=== PATIENT | female | born 1955 | race Hispanic/Latino ===

== ENCOUNTER 2017-12-03 23:14 | Inpatient (IN) | payer SELFPAY ==
[2017-12-04 00:14] LABS: ALT (SGPT) 19 U/L (8-55); AST (SGOT) 22 U/L (5-34); Albumin 3.7 g/dL (3.4-4.8); Alkaline Phosphatase 141 U/L (40-150); Anion Gap 11 mmol/L (10-20); BUN (Urea Nitrogen) 12 mg/dL (9.8-20.1); Calc. Creatinine Clearance 0 mL/min (70-130); Calcium 8.5 mg/dL (7.8-10.44); Carbon Dioxide 24 mmol/L (23-31); Cardiac Risk 4.3 (Less than 4.5); Chloride 107 mmol/L (98-107); Cholesterol 159 mg/dl (< 200 Desired); Estimated GFR-MDRD 79; Globulin 3.1 g/dL (2.4-3.5); Glucose 172 mg/dL (80-115); HDL Cholesterol 37 mg/dL (>60 Neg Risk); LDL Cholesterol, Calculated 100 mg/dL; Potassium 4.4 mmol/L (3.5-5.1); Protein, Total 6.8 g/dL (6.0-8.3); Sodium 138 mmol/L (136-145); Triglycerides 110 mg/dL (Less than 150)
[2017-12-04 00:26] LABS: Lipase 1539 U/L (8-78)
[2017-12-04 02:16] VITALS: BMI 28.3
[2017-12-04] MEDS ORDERED: Ondansetron ODT 4 MG TAB SL PRN (04:08)
[2017-12-04] MEDS ORDERED: Ondansetron HCl/PF 4 MG/2 ML Vial IVP PRN ×2 (04:08→07:40)
[2017-12-04] MEDS ORDERED: Acetaminophen 325 MG TAB PO PRN (04:08)
[2017-12-04] MEDS ORDERED: Lactated Ringer's 1,000 ML IV SCH ×2 (04:15)
[2017-12-04] MEDS ORDERED: Chloraseptic Spray 180 ml Bottle PO PRN (07:40)
[2017-12-04] MEDS ORDERED: Zolpidem Tartrate 5 MG TAB PO PRN (07:40)
[2017-12-04] MEDS ORDERED: Artificial Tears 18 DROP/0.9 ML EA EYE PRN (07:40)
[2017-12-04] MEDS ORDERED: Mag-Al 1200 mg/1200 mg/30 ML UDCUP PO PRN (07:40)
[2017-12-04] MEDS ORDERED: Loperamide HCl 2 MG CAP PO PRN (07:40)
[2017-12-04] MEDS ORDERED: hydrALAZINE 20 MG/ML VIAL SLOW IVP PRN (07:40)
[2017-12-04] MEDS ORDERED: Milk Of Magnesia 30 ML UDCUP PO PRN (07:40)
[2017-12-04] MEDS ORDERED: Sodium Chloride 0.65% Nasal 44 ML BOT EA NARE PRN (07:40)
[2017-12-04] MEDS ORDERED: Ondansetron ODT 4 MG TAB PO PRN (07:40)
[2017-12-04] MEDS ORDERED: Eucerin (Mineral Oil/Petrolatum,White) 30 gm Jar TOP PRN (07:40)
[2017-12-04] MEDS ORDERED: Albuterol Sulfate 2.5 mg/3 ml Neb NEB PRN (07:45)
--- NOTE | 2017-12-04 09:40 | ULT ---
GALLBLADDER ULTRASOUND: HISTORY: Pancreatitis. COMPARISON: None. TECHNIQUE: Utilizing a multihertz transducer, sonographic imaging of the right upper quadrant was performed in t he longitudinal and transverse plane. FINDINGS: Increased echogenicity of the liver is felt to be due to hepatic steatosis or hepatocellular disease. Subsequent evaluation for hepatic masses and intrahepatic biliary dilatation is limited. The right hepatic lobe measures 13 cm. Main portal vein is patent. Appropriate directional flow. Common bile duct diameter is 0.3 cm. There is diffuse wall thickening and edema involving gallbladder. Gallbladder wall thickness is 1.1 cm. There is no evidence of sludge or stone within the gallbladder. There is a small amount of max cholecystic fluid. Knitting Machine Operator reports a negative Tamayo's sign. The right kidney demonstrates a normal cortical echotexture. No hydronephrosis. The right kidney me asures 7.3 cm x 3.9 x 4.7 cm. IMPRESSION: Gallbladder wall thickening and edema. Correlate clinically for acalculous cholecystitis and HIDA sc an. POS: [facility]
[2017-12-04] MEDS ORDERED: Ketorolac Tromethamine 30 MG/ML VIAL IVP PRN (10:02)
[2017-12-04] MEDS: D5 0.9% NS w/ 20 mEq KCl 1,000 ML IV SCH ×3 (11:02→23:50)
[2017-12-04] MEDS: cefTRIAXone\\ROCEPHIN 1 GM in Sodium Chloride 0.9% 100 ML IVPB SCH (11:07)
--- NOTE | 2017-12-04 11:08 | HP ---
PRIMARY CARE PHYSICIAN: [facility] call admission. REASON FOR ADMISSION: Acute pancreatitis. HISTORY OF PRESENT ILLNESS: A 62-year-old female with past medical history of hypertension, gastroesophageal reflux disease, and asthma who went to [facility] with a complaint of acute onset of epigastric abdominal pain. The patient was having 6/10 in intensity pain, constant, stabbing, associated with nausea. She denies any vomiting. There was no specific aggravating or relieving factor. The patient was not able to eat because of pain. Her pain was so intense and that is why she required to go to [facility] where she was found with elevated lipase and patient clinically diagnosed with acute pancreatitis and patient was sent to our emergency room. She was given Toradol 30 mg, morphine 4 mg, Zofran ODT and patient was given IV fluid. Patient never had this type of pain in the past. She denies any constipation, diarrhea, melena or hematochezia. She denies any hematemesis. She denies any fever or chills. She does report lower abdominal and suprapubic discomfort. She denies any dysuria or increased frequency. She denies any hematuria. REVIEW OF SYSTEMS: The following complete review of systems was negative, unless otherwise mentioned in the HPI or below: Constitutional: Weight loss or gain, ability to conduct usual activities. Skin: Rash, itching. Eyes: Double vision, pain. ENT/Mouth: Nose bleeding, neck stiffness, pain, tenderness. Cardiovascular: Palpitations, dyspnea on exertion, orthopnea. Respiratory: Shortness of breath, wheezing, cough, hemoptysis, fever or night sweats. Gastrointestinal: Poor appetite, abdominal pain, heartburn, nausea, vomiting, constipation, or diarrhea. Genitourinary: Urgency, frequency, dysuria, nocturia. Musculoskeletal: Pain, swelling. Neurologic/Psychiatric: Anxiety, depression. Allergy/Immunologic: Skin rash, bleeding tendency. Please see my HPI for pertinent positive and negative. All other review of systems reviewed and negative except as mentioned in the HPI. PAST MEDICAL HISTORY: Asthma, gastroesophageal reflux disease and hypertension. PAST SURGICAL HISTORY: Reviewed and negative. PAST PSYCHIATRIC HISTORY: Reviewed and negative. SOCIAL HISTORY: Patient lives at home. She speaks Slovenian. No history of tobacco, alcohol or illicit drug abuse. FAMILY HISTORY: No strong family history of premature coronary artery disease, stroke or cancer. ALLERGIES: No known drug allergy. CURRENT HOME MEDICATIONS: ProAir HFA 1 puff q.6 hourly p.r.n., aspirin 81 mg p.o. daily, Symbicort 1 puff inhalation b.i.d., enalapril 10 mg p.o. daily. EMERGENCY ROOM COURSE: Patient is given morphine 4 mg, Toradol 30 mg, Zofran ODT and IV fluid. PHYSICAL EXAMINATION: VITAL SIGNS: Currently, blood pressure 127/63, pulse 71, respiratory rate 19, temperature 98.7, saturation 94% on room air, and weight 60.3 kilograms. GENERAL: The patient is currently alert, awake, no obvious acute distress. HEAD: Normocephalic, atraumatic. EYES: Pupils round, reactive to light. Extraocular muscle intact. ENT: Oropharynx within normal limits. Moist mucous membrane, no oral lesion, no pharyngeal erythema, no exudate. NECK: Supple, no JVD, no thyromegaly, no carotid bruit, no jugular venous distention. LUNGS: Clear to auscultation without any rhonchi or rales. CARDIAC: S1 and S2 regular. No murmur, no gallop, no rub. ABDOMEN: Soft, bowel sounds present, nontender, nondistended. No organomegaly , no mass, no suprapubic tenderness. BACK: Examination unremarkable, no CVA tenderness. EXTREMITIES: Upper extremity passive movement of all joints are normal. Lower extremities: No edema. Good peripheral pulsation. SKIN: No skin rash. HEMATOLOGICAL SYSTEM: No lymphadenopathy. ABDOMEN: The patient does have significant tenderness in right upper quadrant as well as epigastric region. No peritoneal sign, no guarding, no rigidity, no rebound. Mild suprapubic discomfort noted. LABORATORY DATA AND IMAGING DATA: CBC; hematocrit 43.3, platelets 330. Urinalysis, bacteria 1+, nitrate negative, leukocyte esterase small. Sodium 138 , potassium 4.4, chloride 107, carbon dioxide 24, BUN 12, creatinine 0.75, glucose 172, calcium 8.5. LFT: AST 22, ALT 19, alkaline phosphatase 141, albumin 3.7, triglyceride 110, cholesterol 159, LDL 100, HDL 37, lipase 1539. Abdominal ultrasound showing gallbladder wall thickening and edema. ASSESSMENT AND PLAN/IMPRESSION: 1. Acute pancreatitis. 2. Acute acalculous cholecystitis. 3. Urinary tract infection. 4. Hypertension. 5. Gastroesophageal reflux disease. 6. Asthma. 7. Deep venous thrombosis prophylaxis with Lovenox 40 mg subcutaneously daily. 8. Gastrointestinal prophylaxis with Pepcid 20 mg IV b.i.d. 10. Deep venous thrombosis prophylaxis, Lovenox 40 mg subcu daily. 11. Gastrointestinal prophylaxis, Pepcid 20 mg IV b.i.d. 12. Code status: The patient is FULL CODE. The patient's granddaughter is surrogate decision maker. PLAN: Full admission to medical floor. Pain control with morphine 4 mg every 4 hourly, Toradol 15 mg IV q.6 hourly. Resume all her home medications. Continue IV fluid with dextrose with NS at 125 mL per hour. Keep n.p.o. Get HIDA scan. GI consulted. Monitor labs, monitor clinical response. Once pain is controlled, then we will start Disposition plan based on clinical course. We are expecting patient's stay in hospital more than 2 midnights. Plan of care discussed with the patient and family member at bedside. ABDI
[2017-12-04 11:18] LABS: Bilirubin Small (Negative); Blood, Urine Negative (Negative); Clarity CLEAR (Clear); Glucose, Urine (Dipstick) 100 mg/dL (Negative); Leukocyte Negative (Negative); Nitrite Negative (Negative); Protein, Urine (Dipstick) 30 mg/dL (Neg-Trace); Urobilinogen 0.2 mg/dL (0.2-1.0); pH, Urine 5.5 (5.0-9.0)
[2017-12-04 11:20] LABS: Bacteria/HPF Rare-Few HPF (None Seen); Pathc Cast-AUWi Flag 1.44 (0-2.49); RBC/HPF 0-3 HPF (0-3); Squamous Epithelial 0-3 HPF (0-3); WBC/HPF 0-3 HPF (0-3)
[2017-12-04 11:21] LABS: Specific Gravity, Urine Greater than 1.060 (1.002-1.036)
[2017-12-04 11:22] LABS: Hyaline Casts/LPF 0-3 HYALINE CAST LPF (0-3 Hyaline)
--- NOTE | 2017-12-04 16:05 | CON ---
DATE OF CONSULTATION: 12/04/2017 GASTROENTEROLOGY CONSULTATION CHIEF COMPLAINT: Abdominal pain. HISTORY OF PRESENT ILLNESS: Ms. Kuo is a 62-year-old woman who had abrupt onset of epigastric severe aching abdominal pain yesterday afternoon. She went to the emergency room and was given a flu id bolus. She had lab work drawn that showed elevated lipase consistent with acute pancreatitis. Lori jimenez had a CT scan with contrast of the abdomen only which showed inflammatory changes around the pancre as consistent with acute pancreatitis. She was transferred to [place] for further care. She has had n ausea and vomiting associated with the pain. She last threw up this morning. She has had no fever, no chest pain or shortness of breath; however, her abdominal pain increases when she takes a deep ferdinand ath. She has had no diarrhea, constipation or blood in the stool. Weight has been stable over the l ast several months. She did have one transient episode of epigastric pain several days ago that was unrelated to eating. This pain lasted for few minutes and resolved. PAST MEDICAL HISTORY: Hypertension and asthma. PAST SURGICAL HISTORY: Negative. FAMILY HISTORY: Positive for prostate cancer in her father. No GI malignancy. SOCIAL HISTORY: No alcohol, tobacco or drugs. ALLERGIES: No known drug allergies. MEDICATIONS PRIOR TO ADMISSION: Enalapril, aspirin 81 mg daily, and inhalers for her asthma. REVIEW OF SYSTEMS: Negative x10 systems reviewed except as stated in history of present illness. Ron flores's family acts as her highway safety engineer. PHYSICAL EXAMINATION: VITAL SIGNS: Temperature 98.4, pulse 73, oxygen saturation 92%, blood pressure 130/71, she is on matt m air. GENERAL: She is in no acute distress. She is oriented x3. HEENT: Eyes have no scleral icterus. Oropharynx is clear without lesion. She has dry mucous membra winter. NECK: No cervical or supraclavicular lymphadenopathy. LUNGS: Clear to auscultation bilaterally. She has shallow breaths however. HEART: Has regular rate and rhythm without murmur. ABDOMEN: Tender diffusely, more so in the epigastric region. No guarding. Her bowel sounds are pre sent. EXTREMITIES: No lower extremity edema. NEUROLOGIC: Cranial nerves are grossly intact. LABORATORY DATA: From yesterday at 19:00, creatinine 0.8, bilirubin 1.1, alkaline phosphatase 147, A ST 32, ALT 19, albumin 4.2, lipase 11,000 with upper limit of normal of 78, white blood cell count 18 , hemoglobin 14, platelets 11.7. She had lab work at midnight last night, which showed creatinine 0. 75, bilirubin 1.0, AST 22, ALT 19, alkaline phosphatase 141, lipase 1539. IMPRESSION: 1. Acute pancreatitis. The source of her pancreatitis is unclear at this point. She had normal riya er tests and no obvious stones in the gallbladder by ultrasound. The gallbladder does show wall thic kness and edema with small amount of pericholecystic fluid. The common bile duct measured 0.3 cm. T he thickening of the gallbladder could indicate active inflammation in the gallbladder; however, this might just be secondary to the pancreatitis as well. I would favor gallbladder is the most likely e tiology in this patient for pancreatitis; however, again LFTs are normal. There is inadequate eviden ce to definitively indicate this. There is no alcohol use. She did have triglyceride level of 110 l ast night. She received IV fluid bolus in the emergency room in [place]. I am unclear as to how m uch fluid she has received since then or how much fluid total she received there. Currently, she is on D5 normal saline with 20 mEq of potassium at 125 mL per hour. 2. Poor respiratory effort. This is secondary to the abdominal pain. Her oxygen saturations 92% on room air. She is encouraged to take very deep breaths couple of times per hour to help prevent atel ectasis. We will also provide incentive spirometer. RECOMMENDATIONS: 1. IV fluids and supportive care. 2. Follow trend of her liver tests. Recheck her hemoglobin as well to see how she has responded to hydration. 3. Incentive spirometer. 4. We will need to keep the gallbladder in mind for further intervention depending on clinical cours e.
[2017-12-04] MEDS: Famotidine/PF 20 mg/2ml Vial SLOW IVP SCH ×2 (16:20→20:52)
[2017-12-04] MEDS: Enoxaparin Sodium 40 MG/0.4 ML SYRINGE SC SCH (16:20)
[2017-12-04] MEDS: Acetaminophen 325 MG TAB PO PRN (17:19)
[2017-12-04] MEDS: Aspirin 81 mg Enteric Coated Tablet PO SCH (17:30)
--- NOTE | 2017-12-04 17:41 | NM ---
HEPATOBILIARY SCAN: 12/04/17 COMPARISON: Gallbladder ultrasound 12/04/17. HISTORY: Right upper quadrant abdominal pain. Pancreatitis. Acalculous cholecystitis. TECHNIQUE: A hepatobiliary scan was performed after administration of 5 millicuries of technetium 99m Mebrofenin . FINDINGS: Prompt uptake of the radiopharmaceutical by the liver is seen. Gallbladder activity is seen within fi ve minutes. Bowel activity is seen after approximately one hour. After administration of CCK, a gallb ladder ejection fraction was estimated at 90%. IMPRESSION: Unremarkable hepatobiliary scan. POS: [facility]
[2017-12-04] MEDS: Mometasone/Formoterol 120 PUFF INHALER INH SCH (18:35)
[2017-12-04] MEDS: HYDROcodone/Acetaminophen 5/325 mg Tablet PO PRN (21:09)
[2017-12-05 05:06] LABS: #Lymphocytes 1.2 thou/uL (1.20-3.40); #Monocytes 0.8 thou/uL (0.11-0.59); #Neutrophils 14.1 thou/uL (1.40-6.50); %Basophils 0.2 % (0.0-1.0); %Eosinophils 0.2 % (0.0-10.0); %Lymphocytes 7.3 % (21.0-51.0); %Monocytes 5.1 % (0.0-10.0); %Neutrophils 87.2 % (42.0-75.0); Hemoglobin 13.2 g/dL (12.0-16.0); Mean Corpuscular Hemoglobin 27.9 pg (27.0-31.0); Mean Platelet Volume 7.8 fL (7.4-10.4); Platelet Count 250 thou/uL (130-400); RBC Distribution Width 11.8 % (11.5-14.5); Red Blood Cell (RBC) Count 4.73 mill/uL (4.20-5.40); White Blood Cell (WBC) Count 16.2 thou/uL (4.8-10.8)
[2017-12-05 05:34] LABS: ALT (SGPT) 15 U/L (8-55); AST (SGOT) 17 U/L (5-34); Albumin 2.8 g/dL (3.4-4.8); Alkaline Phosphatase 100 U/L (40-150); Anion Gap 7 mmol/L (10-20); BUN (Urea Nitrogen) 14 mg/dL (9.8-20.1); Bilirubin, Total 1.5 mg/dL (0.2-1.2); CRP (Inflammatory) 20.76 mg/dL (= or < 0.5); Calc. Creatinine Clearance 79 mL/min (70-130); Calcium 7.7 mg/dL (7.8-10.44); Carbon Dioxide 25 mmol/L (23-31); Chloride 111 mmol/L (98-107); Estimated GFR-MDRD 85; Globulin 2.7 g/dL (2.4-3.5); Glucose 149 mg/dL (80-115); Lipase 316 U/L (8-78); Magnesium 1.8 mg/dL (1.6-2.6); Potassium 4.2 mmol/L (3.5-5.1); Protein, Total 5.5 g/dL (6.0-8.3); Sodium 139 mmol/L (136-145)
[2017-12-05 05:36] LABS: Phosphorus 1.9 mg/dL (2.3-4.7)
[2017-12-05] MEDS ORDERED: Potassium Phosphate 21 MMOL in Sodium Chloride 0.9% 250 ML 250 ML IVPB SCH (06:00)
[2017-12-05] MEDS: Mometasone/Formoterol 120 PUFF INHALER INH SCH ×2 (07:01→19:09)
[2017-12-05] MEDS: Sodium Chloride 0.9% 1,000 ML IV SCH ×3 (08:24→19:56)
--- NOTE | 2017-12-05 08:57 | PDOC.PN ---
- Subjective Encounter Start Date: 12/05/17 Encounter Start Time: 07:40 -: old records requested/rev Patient seen and examined. No new complaints. No overnight events she reports that her abdominal pain is less than yesterday, no fever - Objective Resuscitation Status: Resuscitation Status FULL:Full Resuscitation MAR Reviewed: Yes Vital Signs & Weight: Vital Signs (12 hours) Temp Pulse Resp BP Pulse Ox 12/05/17 08:07 98.5 F 102 H 20 146/78 H 94 L 12/05/17 07:01 87 16 97 12/04/17 23:46 98.5 F 98 16 135/83 94 L Weight Weight 131 lb 2 oz I&O: 12/04/17 12/05/17 12/06/17 06:59 06:59 06:59 Intake Total 1550 Balance 1550 Result Diagrams: 12/05/17 04:15 12/05/17 04:15 Radiology Reviewed by me: Yes (HIDA scan normal) Phys Exam - Physical Examination Constitutional: NAD HEENT: PERRLA, moist MMs, sclera anicteric Neck: no nodes, no JVD, supple, full ROM Respiratory: no wheezing, no rales, no rhonchi Cardiovascular: RRR, no significant murmur, no rub Gastrointestinal: soft, no distention, positive bowel sounds mild epigastric tenderness Musculoskeletal: no edema, pulses present Neurological: non-focal, normal sensation, moves all 4 limbs Psychiatric: normal affect, A&O x 3 Skin: no rash, normal turgor Dx/Plan (1) Acute pancreatitis Code(s): K85.90 - ACUTE PANCREATITIS WITHOUT NECROSIS OR INFECTION, UNSP Status: Acute Qualifiers: Pancreatitis type: idiopathic (2) Hypophosphatemia Code(s): E83.39 - OTHER DISORDERS OF PHOSPHORUS METABOLISM Status: Acute (3) UTI (urinary tract infection) Status: Acute (4) Asthma Code(s): J45.909 - UNSPECIFIED ASTHMA, UNCOMPLICATED Status: Chronic (5) GERD (gastroesophageal reflux disease) Code(s): K21.9 - GASTRO-ESOPHAGEAL REFLUX DISEASE WITHOUT ESOPHAGITIS Status: Chronic (6) Hypertension Code(s): I10 - ESSENTIAL (PRIMARY) HYPERTENSION Status: Chronic (7) Acute acalculous cholecystitis Code(s): K81.0 - ACUTE CHOLECYSTITIS Status: Ruled-out - Plan cont current plan of care, plan discussed w/ family, continue antibiotics, incentive spirometry, out of bed/ambulate, DVT proph w/lovenox * continue pain control * today will start clear liquid and full liquid * if tolerate well tomorrow will give low fat diet * change IVF to NS at 125 ml per hour * ambulate today * discussed with family * rocephin for UTI * medication reviewed as below * symptomatic treatment. Review of Systems - Review of Systems Constitutional: negative: fever, chills, sweats, weakness, malaise, other Eyes: negative: Pain, Vision Change, Conjunctivae Inflammation, Eyelid Inflammation, Redness, Other ENT: negative: Ear Pain, Ear Discharge, Nose Pain, Nose Discharge, Nose Congestion, Mouth Pain, Mouth Swelling, Throat Pain, Throat Swelling, Other Respiratory: negative: Cough, Dry, Shortness of Breath, Hemoptysis, SOB with Excertion, Pleuritic Pain, Sputum, Wheezing Gastrointestinal: Abdominal Pain. negative: Nausea, Vomiting, Diarrhea, Constipation, Melena, Hematochezia, Other Genitourinary: negative: Dysuria, Frequency, Incontinence, Hematuria, Retention , Other Musculoskeletal: negative: Neck Pain, Shoulder Pain, Arm Pain, Back Pain, Hand Pain, Leg Pain, Foot Pain, Other Skin: negative: Rash, Lesions, Negro, Bruising, Other - Medications/Allergies Allergies/Adverse Reactions: Allergies Allergy/AdvReac Type Severity Reaction Status Date / Time No Known Allergies Allergy Unverified 12/04/17 02:12 Medications: Current Medications Acetaminophen (Tylenol) 650 mg PO Q4H PRN PRN Reason: Headache/Fever or Pain Last Admin: 12/04/17 17:19 Dose: 650 mg Hydrocodone Bitart/Acetaminophen (Riesel 5/325) 1 tab PO Q4H PRN PRN Reason: Moderate Pain (4-6) Last Admin: 12/04/17 21:09 Dose: 1 tab Al Hydroxide/Mg Hydroxide (Maalox) 30 ml PO Q6H PRN PRN Reason: Heartburn or Indigestion Albuterol Sulfate (Ventolin) 2.5 mg NEB [id number] PRN PRN Reason: Wheezing Artificial Tears (Tears Naturale) 0 drop EA EYE PRN PRN PRN Reason: Dry Eyes Aspirin (Ecotrin) 81 mg PO DAILY RADHA Last Admin: 12/04/17 17:30 Dose: Not Given Enalapril Maleate (Vasotec) 10 mg PO DAILY [facility] Last Admin: 12/04/17 17:31 Dose: Not Given Enoxaparin Sodium (Lovenox) 40 mg SC 0900 [facility] Last Admin: 12/04/17 16:20 Dose: Not Given Famotidine (Pepcid) 20 mg SLOW IVP Q12HR [facility] Last Admin: 12/04/17 20:52 Dose: 20 mg Hydralazine HCl (Apresoline) 10 mg SLOW IVP Q4H PRN PRN Reason: Systolic BP > 180 Ceftriaxone Sodium 1 gm/ (Sodium Chloride) 100 mls @ 200 mls/hr IVPB Q24HR [facility] Last Admin: 12/04/17 11:07 Dose: 100 mls Potassium Phosphate 21 mmol/ (Sodium Chloride) 507 mls @ 126.75 mls/hr IVPB NOW [facility] Stop: 12/05/17 10:29 Last Admin: 12/05/17 06:26 Dose: 507 mls Sodium Chloride (Normal Saline 0.9%) 1,000 mls @ 125 mls/hr IV .Q8H [facility] Last Admin: 12/05/17 08:24 Dose: 1,000 mls Ketorolac Tromethamine (Toradol) 15 mg IVP Q6H PRN PRN Reason: Pain Stop: 12/09/17 10:03 Loperamide HCl (Imodium) 2 mg PO PRN PRN PRN Reason: Diarrhea/Loose Stools Magnesium Hydroxide (Milk Of Magnesium) 30 ml PO DAILYPRN PRN PRN Reason: Constipation Mineral Oil/White Petrolatum (Eucerin Cream) 0 gm TOP BIDPRN PRN PRN Reason: Dry Skin Miscellaneous Medication (Phos-Nak) 1 pkt PO BID [facility] Mometasone Furoate/Formoterol Fumar (Dulera 100 Mcg/5 Mcg Inhaler) 2 puff INH BID-RT [facility] Last Admin: 12/05/17 07:01 Dose: 2 puff Morphine Sulfate (Morphine) 2 mg SLOW IVP Q2H PRN PRN Reason: Moderate to Severe Pain (4-10) Last Admin: 12/05/17 08:24 Dose: 2 mg Morphine Sulfate (Morphine Sulfate) 4 mg SLOW IVP Q4H PRN PRN Reason: Pain Ondansetron HCl (Zofran Odt) 4 mg PO Q6H PRN PRN Reason: Nausea/Vomiting Ondansetron HCl (Zofran) 4 mg IVP Q6H PRN PRN Reason: Nausea/Vomiting Phenol (Chloraseptic [place] 180 Ml Bot) 0 ml PO PRN PRN PRN Reason: Sore Throat Senna (Senokot) 2 tab PO HSPRN PRN PRN Reason: Constipation Sodium Chloride ([place]ata[place] Nasal [place] 0.65%) 0 ml EA NARE QIDPRN PRN PRN Reason: Nasal Congestion Zolpidem Tartrate (Ambien) 5 mg PO HSPRN PRN PRN Reason: Insomnia
[2017-12-05] MEDS: HYDROcodone/Acetaminophen 5/325 mg Tablet PO PRN ×2 (10:11→17:28)
[2017-12-05] MEDS: Aspirin 81 mg Enteric Coated Tablet PO SCH (10:11)
[2017-12-05] MEDS: Famotidine/PF 20 mg/2ml Vial SLOW IVP SCH (10:13)
[2017-12-05] MEDS: Enoxaparin Sodium 40 MG/0.4 ML SYRINGE SC SCH (10:16)
[2017-12-05] MEDS: cefTRIAXone\\ROCEPHIN 1 GM in Sodium Chloride 0.9% 100 ML IVPB SCH (12:26)
--- NOTE | 2017-12-05 13:55 | PRG ---
DATE OF SERVICE: 12/05/2017 SUBJECTIVE: Ms. Kuo has had improvement in her abdominal pain today. She has had no bowel mov ement today. PHYSICAL EXAMINATION: VITAL SIGNS: Temperature 98.7, pulse 104, blood pressure 113/70, oxygen saturation 92%. GENERAL: She is in no acute distress, awake and alert. LUNGS: Clear to auscultation bilaterally. HEART: Regular rate and rhythm. ABDOMEN: Soft, tender in the upper abdomen, but there is no guarding. Bowel sounds are present. EXTREMITIES: No lower extremity edema and tenderness is mild and her abdomen. LABORATORY DATA: White blood cell count 16.2, hemoglobin is 13.2, platelets 250, creatinine 0.7, vinnie irubin is 1.5, AST 17, ALT 15, alkaline phosphatase 100, lipase is down to 316 from 1500 yesterday. IMPRESSION: 1. Acute pancreatitis. The cause of the pancreatitis is undetermined at this point. I would favor possibility of gallstones; however, no stones were seen by ultrasound and her liver tests were normal on presentation. Her bilirubin did increase very slightly today and will follow the trend of this. If her bilirubin continues to climb, then we can perform an MRCP tomorrow. If again, the liver test s remain normal and no sources identified, then follow up imaging on her pancreas in 4 weeks after re solution of the acute pancreatitis should be performed to rule out a pancreatic tumor as a source for idiopathic pancreatitis in a patient over age 61. RECOMMENDATIONS: 1. Continue supportive care with fluids and pain control. 2. Continue to encourage deep breaths and incentive spirometer. 3. If her liver tests increase tomorrow, then we will consider MRCP is the next step. 4. If her liver tests go back to normal, then followup imaging in 2-4 weeks after resolution of the acute pancreatitis should be performed to rule out a neoplastic process in the pancreas.
[2017-12-05] MEDS: Famotidine 20 MG TAB PO SCH (19:56)
[2017-12-06] MEDS: HYDROcodone/Acetaminophen 5/325 mg Tablet PO PRN ×2 (01:59→19:31)
[2017-12-06] MEDS: Acetaminophen 325 MG TAB PO PRN ×3 (01:59→19:31)
[2017-12-06] MEDS: Sodium Chloride 0.9% 1,000 ML IV SCH ×4 (04:12→21:20)
[2017-12-06 05:32] LABS: Anion Gap 9 mmol/L (10-20); BUN (Urea Nitrogen) 7 mg/dL (9.8-20.1); Calc. Creatinine Clearance 99 mL/min (70-130); Calcium 7.3 mg/dL (7.8-10.44); Carbon Dioxide 22 mmol/L (23-31); Chloride 107 mmol/L (98-107); Estimated GFR-MDRD Greater than 90; Glucose 81 mg/dL (80-115); Lipase 66 U/L (8-78); Potassium 3.5 mmol/L (3.5-5.1); Sodium 134 mmol/L (136-145)
[2017-12-06 06:37] LABS: #Basophils 0.1 thou/uL (0.0-0.2); #Eosinphils 0.1 thou/uL (0.0-0.7); #Lymphocytes 1.1 thou/uL (1.20-3.40); #Monocytes 0.7 thou/uL (0.11-0.59); #Neutrophils 12.1 thou/uL (1.40-6.50); %Basophils 0.4 % (0.0-1.0); %Eosinophils 0.7 % (0.0-10.0); %Monocytes 4.7 % (0.0-10.0); %Neutrophils 86.1 % (42.0-75.0); Hemoglobin 10.8 g/dL (12.0-16.0); Mean Corpuscular HGB CONC 32.7 g/dL (32.0-36.0); Mean Corpuscular Hemoglobin 28.9 pg (27.0-31.0); Mean Corpuscular Volume 88.5 fL (78.0-98.0); Mean Platelet Volume 7.5 fL (7.4-10.4); PLT Morphology Comment Appears Adequate; Platelet Count 200 thou/uL (130-400); RBC Distribution Width 11.6 % (11.5-14.5); RBC Morphology Normal; Red Blood Cell (RBC) Count 3.73 mill/uL (4.20-5.40)
[2017-12-06] MEDS: Mometasone/Formoterol 120 PUFF INHALER INH SCH ×2 (06:50→19:27)
[2017-12-06] MEDS: Famotidine 20 MG TAB PO SCH ×2 (09:06→19:31)
[2017-12-06] MEDS: Aspirin 81 mg Enteric Coated Tablet PO SCH (09:07)
[2017-12-06] MEDS: Enoxaparin Sodium 40 MG/0.4 ML SYRINGE SC SCH (09:07)
--- NOTE | 2017-12-06 09:56 | PDOC.PN ---
- Subjective Encounter Start Date: 12/06/17 Encounter Start Time: 07:40 Patient seen and examined. No new complaints. No overnight events - Objective Resuscitation Status: Resuscitation Status FULL:Full Resuscitation MAR Reviewed: Yes Vital Signs & Weight: Vital Signs (12 hours) Temp Pulse Resp BP BP Pulse Ox 12/06/17 09:06 105/56 L 12/06/17 08:00 98.4 F 75 16 91 L 12/06/17 07:19 98.4 F 75 16 105/56 L 91 L Weight Weight 131 lb 2 oz I&O: 12/05/17 12/06/17 12/07/17 06:59 06:59 06:59 Intake Total 1550 1705 Balance 1550 1705 Result Diagrams: 12/06/17 04:01 12/06/17 04:01 Phys Exam - Physical Examination Constitutional: NAD HEENT: PERRLA, moist MMs, sclera anicteric Neck: no JVD, supple Respiratory: no wheezing, no rales, no rhonchi Cardiovascular: RRR, no significant murmur, no rub Gastrointestinal: soft, no distention, positive bowel sounds mild discomfort Musculoskeletal: no edema, pulses present Neurological: non-focal, normal sensation, moves all 4 limbs Lymphatic: no nodes Psychiatric: normal affect, A&O x 3 Skin: no rash, normal turgor Dx/Plan (1) Acute pancreatitis Code(s): K85.90 - ACUTE PANCREATITIS WITHOUT NECROSIS OR INFECTION, UNSP Status: Acute Qualifiers: Pancreatitis type: idiopathic (2) Hypophosphatemia Code(s): E83.39 - OTHER DISORDERS OF PHOSPHORUS METABOLISM Status: Acute (3) UTI (urinary tract infection) Status: Acute (4) Asthma Code(s): J45.909 - UNSPECIFIED ASTHMA, UNCOMPLICATED Status: Chronic (5) GERD (gastroesophageal reflux disease) Code(s): K21.9 - GASTRO-ESOPHAGEAL REFLUX DISEASE WITHOUT ESOPHAGITIS Status: Chronic (6) Hypertension Code(s): I10 - ESSENTIAL (PRIMARY) HYPERTENSION Status: Chronic (7) Acute acalculous cholecystitis Code(s): K81.0 - ACUTE CHOLECYSTITIS Status: Ruled-out - Plan cont current plan of care, plan discussed w/ family * advance diet * if do ok, possible discharge * medication reviewed as below * symptomatic treatment * discussed with family about plan and diet. Review of Systems - Review of Systems Eyes: negative: Pain, Vision Change, Conjunctivae Inflammation, Eyelid Inflammation, Redness, Other ENT: negative: Ear Pain, Ear Discharge, Nose Pain, Nose Discharge, Nose Congestion, Mouth Pain, Mouth Swelling, Throat Pain, Throat Swelling, Other Respiratory: negative: Cough, Dry, Shortness of Breath, Hemoptysis, SOB with Excertion, Pleuritic Pain, Sputum, Wheezing Cardiovascular: negative: chest pain, palpitations, orthopnea, paroxysmal nocturnal dyspnea, edema, light headedness, other Gastrointestinal: negative: Nausea, Vomiting, Abdominal Pain, Diarrhea, Constipation, Melena, Hematochezia, Other Genitourinary: negative: Dysuria, Frequency, Incontinence, Hematuria, Retention , Other Musculoskeletal: negative: Neck Pain, Shoulder Pain, Arm Pain, Back Pain, Hand Pain, Leg Pain, Foot Pain, Other Skin: negative: Rash, Lesions, Negro, Bruising, Other - Medications/Allergies Allergies/Adverse Reactions: Allergies Allergy/AdvReac Type Severity Reaction Status Date / Time No Known Allergies Allergy Unverified 12/04/17 02:12 Medications: Current Medications Acetaminophen (Tylenol) 650 mg PO Q4H PRN PRN Reason: Headache/Fever or Pain Last Admin: 12/06/17 01:59 Dose: 650 mg Hydrocodone Bitart/Acetaminophen ([place] 5/325) 1 tab PO Q4H PRN PRN Reason: Moderate Pain (4-6) Last Admin: 12/06/17 01:59 Dose: 1 tab Al Hydroxide/Mg Hydroxide (Maalox) 30 ml PO Q6H PRN PRN Reason: Heartburn or Indigestion Albuterol Sulfate (Ventolin) 2.5 mg NEB [id number] PRN PRN Reason: Wheezing Artificial Tears (Tears Naturale) 0 drop EA EYE PRN PRN PRN Reason: Dry Eyes Aspirin (Ecotrin) 81 mg PO DAILY [facility] Last Admin: 12/06/17 09:07 Dose: 81 mg Enalapril Maleate (Vasotec) 10 mg PO DAILY [facility] Last Admin: 12/06/17 09:06 Dose: 10 mg Enoxaparin Sodium (Lovenox) 40 mg SC 0900 [facility] Last Admin: 12/06/17 09:07 Dose: 40 mg Famotidine (Pepcid) 20 mg PO BID [facility] Last Admin: 12/06/17 09:06 Dose: 20 mg Hydralazine HCl (Apresoline) 10 mg SLOW IVP Q4H PRN PRN Reason: Systolic BP > 180 Ceftriaxone Sodium 1 gm/ (Sodium Chloride) 100 mls @ 200 mls/hr IVPB Q24HR [facility] Last Admin: 12/05/17 12:26 Dose: 100 mls Sodium Chloride (Normal Saline 0.9%) 1,000 mls @ 125 mls/hr IV .Q8H [facility] Last Admin: 12/06/17 04:12 Dose: 1,000 mls Ketorolac Tromethamine (Toradol) 15 mg IVP Q6H PRN PRN Reason: Pain Stop: 12/09/17 10:03 Loperamide HCl (Imodium) 2 mg PO PRN PRN PRN Reason: Diarrhea/Loose Stools Magnesium Hydroxide (Milk Of Magnesium) 30 ml PO DAILYPRN PRN PRN Reason: Constipation Mineral Oil/White Petrolatum (Eucerin Cream) 0 gm TOP BIDPRN PRN PRN Reason: Dry Skin Miscellaneous Medication (Phos-Nak) 1 pkt PO BID [facility] Last Admin: 12/06/17 09:06 Dose: 1 pkt Mometasone Furoate/Formoterol Fumar (Dulera 100 Mcg/5 Mcg Inhaler) 2 puff INH BID-RT [facility] Last Admin: 12/06/17 06:50 Dose: 2 puff Morphine Sulfate (Morphine) 2 mg SLOW IVP Q2H PRN PRN Reason: Moderate to Severe Pain (4-10) Last Admin: 12/05/17 19:56 Dose: 2 mg Morphine Sulfate (Morphine Sulfate) 4 mg SLOW IVP Q4H PRN PRN Reason: Pain Ondansetron HCl (Zofran Odt) 4 mg PO Q6H PRN PRN Reason: Nausea/Vomiting Ondansetron HCl (Zofran) 4 mg IVP Q6H PRN PRN Reason: Nausea/Vomiting Phenol (Chloraseptic [place] 180 Ml Bot) 0 ml PO PRN PRN PRN Reason: Sore Throat Senna (Senokot) 2 tab PO HSPRN PRN PRN Reason: Constipation Sodium Chloride ([place] Nasal [place] 0.65%) 0 ml EA NARE QIDPRN PRN PRN Reason: Nasal Congestion Zolpidem Tartrate (Ambien) 5 mg PO HSPRN PRN PRN Reason: Insomnia
--- NOTE | 2017-12-06 11:40 | DIS ---
DATE OF ADMISSION: 12/04/2017 DATE OF DISCHARGE: 12/06/2017 PRIMARY CARE PHYSICIAN: [facility] call admission. DISCHARGE DISPOSITION: Home. PRIMARY DISCHARGE DIAGNOSES: 1. Acute idiopathic pancreatitis. 2. Urinary tract infection, presumed. 3. Hypophosphatemia, corrected. SECONDARY DISCHARGE DIAGNOSES: 1. Hypertension. 2. Gastroesophageal reflux disease. 3. Asthma. PRIMARY PROCEDURE AND OPERATION: None. RADIOLOGICAL INVESTIGATION: Abdomen ultrasound showed findings suspicious for acute acalculous miracle cystitis. Hepatobiliary scan was negative for any acute cholecystitis. SIGNIFICANT LABORATORY DATA: WBC 14.0, hemoglobin 10.8, platelet 200. Sodium 134, creatinine 0.56, calcium 7.3. CRP 20.76. LFT normal, lipase 66, LDL 100, triglycerides 110. Urinalysis unremarkable . Urine culture negative. DISCHARGE MEDICATIONS: Cipro 250 mg p.o. b.i.d. for 3 days, Protonix 40 mg p.o. daily, Tylenol #3 1- 2 tablets q.6 hourly p.r.n., Zofran 4 mg sublingual q.6 hours p.r.n. for nausea, enalapril 10 mg p.o. daily, Symbicort 1 puff inhalation b.i.d., aspirin 81 mg p.o. daily, ProAir HFA 1 puff inhalation q. 6 hourly p.r.n. CONTRAINDICATIONS: None. CODE STATUS: FULL CODE. INPATIENT CONSULTANTS: Dr. Castro Christie was consulted while in hospital. TEST RESULTS PENDING ON DISCHARGE: None. ALLERGIES: No known drug allergy. DISCHARGE PLAN: Post hospital, the patient will follow up with primary care physician and Dr. Christie as instructed. HOSPITAL COURSE: A 62-year-old female with above-mentioned medical problem, who came to emergency ro om with complaint of epigastric abdominal pain, nausea, and poor p.o. intake. This was started acute ly. She had elevated lipase and she was clinically diagnosed with acute pancreatitis. She had abdom inal ultrasound, which showed suspected finding of acute acalculous cholecystitis. We did HIDA scan and that was normal. We consulted pipelines manager. We treated her acute pancreatitis in a standa rd way with n.p.o., pain control with narcotics, IV fluid. The patient's pain is significantly impro ving. She has only mild discomfort in the epigastric area. We advanced her diet from clear liquid t o full liquid and solid food today. The patient if does not get worse and her pain is under control, then she possibly can be discharged home later on today. The patient will need outpatient GI followup. This patient has idiopathic panc reatitis. We do not find any specific etiology for her pancreatitis. She does not have any alcohol abuse history. If patient gets recurrent pancreatitis in the near future, then she may need MRCP or endoscopic ultra sound. Dietary instruction given to the patient with a smalltalk developer. The patient is seen and examined at bedside today. Plan of care discussed with the family member at bedside. Please see my progress note from today for further detail. As long as the patient's pain is under control and she does not have any worsening of symptoms, then we will consider discharging her later on today.
[2017-12-06 12:00] LABS: ALT (SGPT) 12 U/L (8-55); AST (SGOT) 21 U/L (5-34); Albumin 2.5 g/dL (3.4-4.8); Alkaline Phosphatase 124 U/L (40-150); Bilirubin, Direct 0.8 mg/dL (0.1-0.3); Bilirubin, Total 1.8 mg/dL (0.2-1.2); Protein, Total 4.8 g/dL (6.0-8.3)
[2017-12-06] MEDS: cefTRIAXone\\ROCEPHIN 1 GM in Sodium Chloride 0.9% 100 ML IVPB SCH (12:06)
[2017-12-06] MEDS: Senokot 8.6 MG TAB PO PRN (14:06)
--- NOTE | 2017-12-06 14:59 | PRG ---
DATE OF SERVICE: 12/06/2017 SUBJECTIVE: Ms. Kuo is feeling better from an epigastric pain standpoint; however, she still f eels quite bloated. She is having a little oral intake due to the bloating. She has had no further vomiting. OBJECTIVE: VITAL SIGNS: Temperature 98.5, pulse 84, blood pressure 120/68. GENERAL: She is sitting up in a chair, in no acute distress, awake and alert. LUNGS: Clear to auscultation bilaterally. HEART: Regular rate and rhythm. ABDOMEN: Mildly distended. Bowel sounds are present. Her abdomen is soft, no guarding. EXTREMITIES: No lower extremity edema. LABORATORY DATA: White blood cell count 14.0, hemoglobin 10.8, platelets 200. Creatinine 0.56, bili wilder 1.8, AST 21, ALT 12, alkaline phosphatase 124, albumin 2.5, lipase is back to normal. ASSESSMENT AND PLAN: Acute pancreatitis. This is idiopathic at this point; however, I would still f avor the most likely etiology being gallstone pancreatitis. Given that her bilirubin has gradually c rept up over the last few days, I will plan MRCP of the bile ducts to rule out evidence of choledocho lithiasis and also evaluate for cholelithiasis. If the bile ducts and gallbladder clear by MRI, then she can potentially discharge home when she is tolerating her oral diet well and then plan to follow up CT scan on her pancreas in a month to rule out any neoplastic process. RECOMMENDATIONS: MRCP today.
[2017-12-07] MEDS: Sodium Chloride 0.9% 1,000 ML IV SCH ×4 (05:37→22:56)
[2017-12-07] MEDS: Mometasone/Formoterol 120 PUFF INHALER INH SCH ×2 (06:44→20:24)
[2017-12-07 08:39] LABS: ALT (SGPT) 11 U/L (8-55); AST (SGOT) 15 U/L (5-34); Albumin 2.6 g/dL (3.4-4.8); Alkaline Phosphatase 131 U/L (40-150); Anion Gap 12 mmol/L (10-20); BUN (Urea Nitrogen) 7 mg/dL (9.8-20.1); Bilirubin, Total 1.7 mg/dL (0.2-1.2); Calc. Creatinine Clearance 111 mL/min (70-130); Calcium 7.7 mg/dL (7.8-10.44); Carbon Dioxide 19 mmol/L (23-31); Chloride 107 mmol/L (98-107); Estimated GFR-MDRD Greater than 90; Lipase 14 U/L (8-78); Phosphorus 2.6 mg/dL (2.3-4.7); Potassium 3.1 mmol/L (3.5-5.1); Protein, Total 5.6 g/dL (6.0-8.3); Sodium 135 mmol/L (136-145)
[2017-12-07 08:45] LABS: Glucose 56 mg/dL (80-115)
[2017-12-07 08:52] LABS: Hemoglobin 11.2 g/dL (12.0-16.0); Mean Corpuscular HGB CONC 33.4 g/dL (32.0-36.0); Mean Corpuscular Hemoglobin 29.4 pg (27.0-31.0); Mean Platelet Volume 6.9 fL (7.4-10.4); Platelet Count 234 thou/uL (130-400); RBC Distribution Width 11.5 % (11.5-14.5); White Blood Cell (WBC) Count 13.5 thou/uL (4.8-10.8)
[2017-12-07] MEDS ORDERED: Dextrose 50% Abboject 50 ML SYRINGE ONE (09:12)
[2017-12-07 09:30] LABS: Band 15 % (5-11); Lymphocytes 4 % (21-51); MDiff Complete? YES; Monocytes 9 % (0-10); Neutrophil 72 % (42-75); PLT Morphology Comment Appears Adequate; RBC Morphology Normal
--- NOTE | 2017-12-07 11:12 | PDOC.PN ---
- Subjective Encounter Start Date: 12/07/17 Encounter Start Time: 08:50 pt is not eating as she gets full, no nausea or vomiting, no fever she was npo for mrcp, so blood sugar dropped - Objective Resuscitation Status: Resuscitation Status FULL:Full Resuscitation MAR Reviewed: Yes Vital Signs & Weight: Vital Signs (12 hours) Temp Pulse Resp BP Pulse Ox 12/07/17 07:35 98.3 F 72 16 102/64 92 L Weight Weight 131 lb 2 oz I&O: 12/06/17 12/07/17 12/08/17 06:59 06:59 06:59 Intake Total 1705 1979 Balance 1705 1979 Result Diagrams: 12/07/17 08:05 12/07/17 08:05 Phys Exam - Physical Examination Constitutional: NAD HEENT: PERRLA, moist MMs, sclera anicteric Neck: no JVD, supple Respiratory: no wheezing, no rales, no rhonchi Cardiovascular: RRR, no significant murmur, no rub Gastrointestinal: soft, no distention, positive bowel sounds mild epigastric discomfort+ Musculoskeletal: no edema, pulses present Neurological: non-focal, normal sensation, moves all 4 limbs Lymphatic: no nodes Psychiatric: normal affect, A&O x 3 Skin: no rash, normal turgor Dx/Plan (1) Acute pancreatitis Code(s): K85.90 - ACUTE PANCREATITIS WITHOUT NECROSIS OR INFECTION, UNSP Status: Acute Qualifiers: Pancreatitis type: idiopathic (2) Hypophosphatemia Code(s): E83.39 - OTHER DISORDERS OF PHOSPHORUS METABOLISM Status: Acute (3) UTI (urinary tract infection) Status: Acute (4) Asthma Code(s): J45.909 - UNSPECIFIED ASTHMA, UNCOMPLICATED Status: Chronic (5) GERD (gastroesophageal reflux disease) Code(s): K21.9 - GASTRO-ESOPHAGEAL REFLUX DISEASE WITHOUT ESOPHAGITIS Status: Chronic (6) Hypertension Code(s): I10 - ESSENTIAL (PRIMARY) HYPERTENSION Status: Chronic (7) Acute acalculous cholecystitis Code(s): K81.0 - ACUTE CHOLECYSTITIS Status: Ruled-out (8) Hypokalemia Code(s): E87.6 - HYPOKALEMIA Status: Acute (9) Hypoglycemia Code(s): E16.2 - HYPOGLYCEMIA, UNSPECIFIED Status: Acute - Plan cont current plan of care, plan discussed w/ family, continue antibiotics * today mrcp * will replace potassium * continue rocephin * pain control * discharge based on mrcp and GI clearance * medication reviewed as below * symptomatic treatment * d50% given for hypoglycemia * discussed with daughter. Review of Systems - Review of Systems Constitutional: negative: fever, chills, sweats, weakness, malaise, other Eyes: negative: Pain, Vision Change, Conjunctivae Inflammation, Eyelid Inflammation, Redness, Other ENT: negative: Ear Pain, Ear Discharge, Nose Pain, Nose Discharge, Nose Congestion, Mouth Pain, Mouth Swelling, Throat Pain, Throat Swelling, Other Respiratory: negative: Cough, Dry, Shortness of Breath, Hemoptysis, SOB with Excertion, Pleuritic Pain, Sputum, Wheezing Cardiovascular: negative: chest pain, palpitations, orthopnea, paroxysmal nocturnal dyspnea, edema, light headedness, other Gastrointestinal: Abdominal Pain. negative: Nausea, Vomiting, Diarrhea, Constipation, Melena, Hematochezia, Other Genitourinary: negative: Dysuria, Frequency, Incontinence, Hematuria, Retention , Other Musculoskeletal: negative: Neck Pain, Shoulder Pain, Arm Pain, Back Pain, Hand Pain, Leg Pain, Foot Pain, Other - Medications/Allergies Allergies/Adverse Reactions: Allergies Allergy/AdvReac Type Severity Reaction Status Date / Time No Known Allergies Allergy Unverified 12/04/17 02:12 Medications: Current Medications Acetaminophen (Tylenol) 650 mg PO Q4H PRN PRN Reason: Headache/Fever or Pain Last Admin: 12/06/17 19:31 Dose: 650 mg Hydrocodone Bitart/Acetaminophen ([place] 5/325) 1 tab PO Q4H PRN PRN Reason: Moderate Pain (4-6) Last Admin: 12/06/17 19:31 Dose: 1 tab Al Hydroxide/Mg Hydroxide (Maalox) 30 ml PO Q6H PRN PRN Reason: Heartburn or Indigestion Albuterol Sulfate (Ventolin) 2.5 mg NEB [id number] PRN PRN Reason: Wheezing Artificial Tears (Tears Naturale) 0 drop EA EYE PRN PRN PRN Reason: Dry Eyes Aspirin (Ecotrin) 81 mg PO DAILY [facility] Last Admin: 12/06/17 09:07 Dose: 81 mg Enalapril Maleate (Vasotec) 10 mg PO DAILY [facility] Last Admin: 12/06/17 09:06 Dose: 10 mg Enoxaparin Sodium (Lovenox) 40 mg SC 0900 [facility] Last Admin: 12/06/17 09:07 Dose: 40 mg Famotidine (Pepcid) 20 mg PO BID [facility] Last Admin: 12/06/17 19:31 Dose: 20 mg Hydralazine HCl (Apresoline) 10 mg SLOW IVP Q4H PRN PRN Reason: Systolic BP > 180 Sodium Chloride (Normal Saline 0.9%) 1,000 mls @ 125 mls/hr IV .Q8H [facility] Last Admin: 12/07/17 05:37 Dose: 1,000 mls Ceftriaxone Sodium 1 gm/Miscellaneous Medication 1 each/ Sodium Chloride 100 mls @ 200 mls/hr IVPB 1100 [facility] Ketorolac Tromethamine (Toradol) 15 mg IVP Q6H PRN PRN Reason: Pain Stop: 12/09/17 10:03 Loperamide HCl (Imodium) 2 mg PO PRN PRN PRN Reason: Diarrhea/Loose Stools Magnesium Hydroxide (Milk Of Magnesium) 30 ml PO DAILYPRN PRN PRN Reason: Constipation Mineral Oil/White Petrolatum (Eucerin Cream) 0 gm TOP BIDPRN PRN PRN Reason: Dry Skin Miscellaneous Medication (Phos-Nak) 1 pkt PO BID [facility] Last Admin: 12/06/17 19:32 Dose: 1 pkt Mometasone Furoate/Formoterol Fumar (Dulera 100 Mcg/5 Mcg Inhaler) 2 puff INH BID-RT [facility] Last Admin: 12/07/17 06:44 Dose: 2 puff Morphine Sulfate (Morphine) 2 mg SLOW IVP Q2H PRN PRN Reason: Moderate to Severe Pain (4-10) Last Admin: 12/05/17 19:56 Dose: 2 mg Morphine Sulfate (Morphine Sulfate) 4 mg SLOW IVP Q4H PRN PRN Reason: Pain Ondansetron HCl (Zofran Odt) 4 mg PO Q6H PRN PRN Reason: Nausea/Vomiting Ondansetron HCl (Zofran) 4 mg IVP Q6H PRN PRN Reason: Nausea/Vomiting Phenol (Chloraseptic [place] 180 Ml Bot) 0 ml PO PRN PRN PRN Reason: Sore Throat Potassium Chloride (K-Dur) 40 meq PO BID-WM RADHA Stop: 12/08/17 08:01 Senna (Senokot) 2 tab PO HSPRN PRN PRN Reason: Constipation Last Admin: 12/06/17 14:06 Dose: 2 tab Sodium Chloride ([place] Nasal [place] 0.65%) 0 ml EA NARE QIDPRN PRN PRN Reason: Nasal Congestion Zolpidem Tartrate (Ambien) 5 mg PO HSPRN PRN PRN Reason: Insomnia
[2017-12-07] MEDS: cefTRIAXone\\ROCEPHIN 1 GM, Admixture Fee 1 EACH in Sodium Chloride 0.9% 100 ML IVPB SCH (11:18)
[2017-12-07] MEDS: Famotidine 20 MG TAB PO SCH ×2 (11:18→20:25)
[2017-12-07] MEDS: Aspirin 81 mg Enteric Coated Tablet PO SCH (11:18)
[2017-12-07] MEDS: Enoxaparin Sodium 40 MG/0.4 ML SYRINGE SC SCH (11:20)
--- NOTE | 2017-12-07 14:46 | MRI ---
MRI OF THE ABDOMEN WITH AND WITHOUT CONTRAST: Date: 12/07/17 INDICATINO: Acute pancreatitis and elevated bilirubin. TECHNIQUE: Multiplanar, multisequence MR images were obtained of the abdomen with and without contrast utilizing 12 mL of MultiHance. FINDINGS: There is prominent edema involving the pancreatic body and pancreatic tail. There is enhancement of t he pancreatic parenchyma without evidence of necrosis or drainable fluid collection. Prominent bilate ral pleural effusions are seen involving both lung bases. There is mild ascites. There is scattered e isrrael within the retroperitoneal space, right greater than left. No definite filling defect is evident within the common bile duct. No intrahepatic biliary dilatation is evident. There is mild wall thick ening involving the gallbladder. Small bowel is of normal appearance. The visualized liver demonstrat es no focal hepatic lesion. No focal renal lesion is noted. Spleen appears within normal limits. IMPRESSION: 1. Findings of noncomplicated acute pancreatitis. 2. No visible stones are seen within the gallbladder, nor within the visualized common bile duct. 3. There is edematous change within the right retroperitoneum with a mild amount of ascites present within the abdomen and pelvis. 4. Moderate bilateral pleural effusions. POS: [facility]
[2017-12-07] MEDS: Potassium Chloride 20 MEQ TAB PO SCH (16:11)
[2017-12-07] MEDS: Senokot 8.6 MG TAB PO PRN (16:12)
[2017-12-07] MEDS: HYDROcodone/Acetaminophen 5/325 mg Tablet PO PRN (20:26)
[2017-12-08] MEDS: Sodium Chloride 0.9% 1,000 ML IV SCH ×2 (01:26→09:00)
[2017-12-08 07:48] VITALS: TEMP 98.8
[2017-12-08] MEDS: Mometasone/Formoterol 120 PUFF INHALER INH SCH (08:06)
[2017-12-08] MEDS: Aspirin 81 mg Enteric Coated Tablet PO SCH (08:32)
[2017-12-08] MEDS: Potassium Chloride 20 MEQ TAB PO SCH (08:32)
[2017-12-08] MEDS: Famotidine 20 MG TAB PO SCH (08:32)
[2017-12-08] MEDS: Enoxaparin Sodium 40 MG/0.4 ML SYRINGE SC SCH (08:33)
[2017-12-08 08:38] VITALS: BP 102/64
--- NOTE | 2017-12-08 10:58 | PRG ---
DATE OF SERVICE: 12/07/2017 SUBJECTIVE: Ms. Kuo still has some bloating after she eats and early satiety, but overall her pain is greatly improved. PHYSICAL EXAMINATION: VITAL SIGNS: Temperature 98.4, pulse 66, blood pressure 108/67. GENERAL: She is in no acute distress. She is awake and alert. LUNGS: Clear to auscultation bilaterally. HEART: Regular rate and rhythm. ABDOMEN: Soft, minimal tenderness in the epigastric region. Bowel sounds are present. EXTREMITIES: No lower extremity edema. LABORATORY DATA: White blood cell count 13.5, hemoglobin 11.2, platelets 234. Creatinine 0.5. IMPRESSION: Idiopathic acute pancreatitis. The MRCP was negative for gallstones and negative for ch oledocholithiasis. Her bilirubin is stabilized at 1.7. AST 15, ALT 11, alkaline phosphatase 131. T he elevated bilirubin could be a medication side effect or less likely Gilbert's given that her bilir ubin was normal on presentation. She does not have significant cholestasis given the normal alkaline phosphatase. Overall, her pancreatitis is not severe, and she is greatly improved. Her oxygen satu ration has been a little low, likely from hypoventilation or atelectasis from the decreased depths of her inspirations with the abdominal distention and pain. RECOMMENDATIONS: 1. She is tolerating a low-fat diet. 2. She should hopefully be able to discharge home when she is ambulating and tolerating her diet naty Walter will sign off for now. Please call if GI can be of assistance.
--- NOTE | 2017-12-08 11:12 | PDOC.PN ---
- Subjective Encounter Start Date: 12/08/17 Encounter Start Time: 08:40 Patient seen and examined. No new complaints. No overnight events - Objective Resuscitation Status: Resuscitation Status FULL:Full Resuscitation MAR Reviewed: Yes Vital Signs & Weight: Vital Signs (12 hours) Temp Pulse Resp BP BP Pulse Ox 12/08/17 08:32 102/64 12/08/17 07:47 98.8 F 65 16 117/63 96 Weight Weight 131 lb 2 oz I&O: 12/07/17 12/08/17 12/09/17 06:59 06:59 06:59 Intake Total 1979 1919 Balance 1979 1919 Result Diagrams: 12/07/17 08:05 12/07/17 08:05 Phys Exam - Physical Examination Constitutional: NAD HEENT: PERRLA, moist MMs, sclera anicteric Neck: no JVD, supple Respiratory: no wheezing, no rales, no rhonchi Cardiovascular: RRR, no significant murmur, no rub Gastrointestinal: soft, non-tender, no distention, positive bowel sounds Musculoskeletal: no edema, pulses present Neurological: non-focal, normal sensation, moves all 4 limbs Psychiatric: normal affect, A&O x 3 Skin: no rash, normal turgor Dx/Plan (1) Acute pancreatitis Code(s): K85.90 - ACUTE PANCREATITIS WITHOUT NECROSIS OR INFECTION, UNSP Status: Acute Qualifiers: Pancreatitis type: idiopathic (2) Hypophosphatemia Code(s): E83.39 - OTHER DISORDERS OF PHOSPHORUS METABOLISM Status: Acute (3) UTI (urinary tract infection) Status: Acute (4) Asthma Code(s): J45.909 - UNSPECIFIED ASTHMA, UNCOMPLICATED Status: Chronic (5) GERD (gastroesophageal reflux disease) Code(s): K21.9 - GASTRO-ESOPHAGEAL REFLUX DISEASE WITHOUT ESOPHAGITIS Status: Chronic (6) Hypertension Code(s): I10 - ESSENTIAL (PRIMARY) HYPERTENSION Status: Chronic (7) Acute acalculous cholecystitis Code(s): K81.0 - ACUTE CHOLECYSTITIS Status: Ruled-out (8) Hypokalemia Code(s): E87.6 - HYPOKALEMIA Status: Acute (9) Hypoglycemia Code(s): E16.2 - HYPOGLYCEMIA, UNSPECIFIED Status: Acute - Plan cont current plan of care, plan discussed w/ family * medication reviewed as below * symptomatic treatment * stable for discharge * see discharge meron. Review of Systems - Review of Systems Eyes: negative: Pain, Vision Change, Conjunctivae Inflammation, Eyelid Inflammation, Redness, Other ENT: negative: Ear Pain, Ear Discharge, Nose Pain, Nose Discharge, Nose Congestion, Mouth Pain, Mouth Swelling, Throat Pain, Throat Swelling, Other Respiratory: negative: Cough, Dry, Shortness of Breath, Hemoptysis, SOB with Excertion, Pleuritic Pain, Sputum, Wheezing Cardiovascular: negative: chest pain, palpitations, orthopnea, paroxysmal nocturnal dyspnea, edema, light headedness, other Gastrointestinal: negative: Nausea, Vomiting, Abdominal Pain, Diarrhea, Constipation, Melena, Hematochezia, Other Genitourinary: negative: Dysuria, Frequency, Incontinence, Hematuria, Retention , Other Musculoskeletal: negative: Neck Pain, Shoulder Pain, Arm Pain, Back Pain, Hand Pain, Leg Pain, Foot Pain, Other - Medications/Allergies Allergies/Adverse Reactions: Allergies Allergy/AdvReac Type Severity Reaction Status Date / Time No Known Allergies Allergy Unverified 12/04/17 02:12 Medications: Current Medications Acetaminophen (Tylenol) 650 mg PO Q4H PRN PRN Reason: Headache/Fever or Pain Last Admin: 12/06/17 19:31 Dose: 650 mg Hydrocodone Bitart/Acetaminophen ([place] 5/325) 1 tab PO Q4H PRN PRN Reason: Moderate Pain (4-6) Last Admin: 12/07/17 20:26 Dose: 1 tab Al Hydroxide/Mg Hydroxide (Maalox) 30 ml PO Q6H PRN PRN Reason: Heartburn or Indigestion Albuterol Sulfate (Ventolin) 2.5 mg NEB [id number] PRN PRN Reason: Wheezing Artificial Tears (Tears Naturale) 0 drop EA EYE PRN PRN PRN Reason: Dry Eyes Aspirin (Ecotrin) 81 mg PO DAILY [facility] Last Admin: 12/08/17 08:32 Dose: 81 mg Enalapril Maleate (Vasotec) 10 mg PO DAILY [facility] Last Admin: 12/08/17 08:32 Dose: 10 mg Enoxaparin Sodium (Lovenox) 40 mg SC 0900 [facility] Last Admin: 12/08/17 08:33 Dose: 40 mg Famotidine (Pepcid) 20 mg PO BID [facility] Last Admin: 12/08/17 08:32 Dose: 20 mg Hydralazine HCl (Apresoline) 10 mg SLOW IVP Q4H PRN PRN Reason: Systolic BP > 180 Sodium Chloride (Normal Saline 0.9%) 1,000 mls @ 125 mls/hr IV .Q8H [facility] Last Admin: 12/08/17 01:26 Dose: 1,000 mls Ceftriaxone Sodium 1 gm/Miscellaneous Medication 1 each/ Sodium Chloride 100 mls @ 200 mls/hr IVPB 1100 [facility] Last Admin: 12/07/17 11:18 Dose: 100 mls Ketorolac Tromethamine (Toradol) 15 mg IVP Q6H PRN PRN Reason: Pain Stop: 12/09/17 10:03 Loperamide HCl (Imodium) 2 mg PO PRN PRN PRN Reason: Diarrhea/Loose Stools Magnesium Hydroxide (Milk Of Magnesium) 30 ml PO DAILYPRN PRN PRN Reason: Constipation Mineral Oil/White Petrolatum (Eucerin Cream) 0 gm TOP BIDPRN PRN PRN Reason: Dry Skin Mometasone Furoate/Formoterol Fumar (Dulera 100 Mcg/5 Mcg Inhaler) 2 puff INH BID-RT [facility] Last Admin: 12/08/17 08:06 Dose: 2 puff Morphine Sulfate (Morphine) 2 mg SLOW IVP Q2H PRN PRN Reason: Moderate to Severe Pain (4-10) Last Admin: 12/05/17 19:56 Dose: 2 mg Morphine Sulfate (Morphine Sulfate) 4 mg SLOW IVP Q4H PRN PRN Reason: Pain Ondansetron HCl (Zofran Odt) 4 mg PO Q6H PRN PRN Reason: Nausea/Vomiting Ondansetron HCl (Zofran) 4 mg IVP Q6H PRN PRN Reason: Nausea/Vomiting Phenol (Chloraseptic [place] 180 Ml Bot) 0 ml PO PRN PRN PRN Reason: Sore Throat Senna (Senokot) 2 tab PO HSPRN PRN PRN Reason: Constipation Last Admin: 12/07/17 16:12 Dose: 2 tab Sodium Chloride (Mobile Nasal [place] 0.65%) 0 ml EA NARE QIDPRN PRN PRN Reason: Nasal Congestion Zolpidem Tartrate (Ambien) 5 mg PO HSPRN PRN PRN Reason: Insomnia
[2017-12-08] MEDS: cefTRIAXone\\ROCEPHIN 1 GM, Admixture Fee 1 EACH in Sodium Chloride 0.9% 100 ML IVPB SCH (12:32)
[2017-12-08] MEDS: HYDROcodone/Acetaminophen 5/325 mg Tablet PO PRN (12:36)
--- NOTE | 2017-12-08 13:36 | ADD-HP ---
DATE OF SERVICE: 12/07/2017 RECOMMENDATIONS: Follow up in GI clinic in 4 weeks. We will plan repeat CT scan of the pancreas at that time, after the acute pancreatitis has resolved to rule out a neoplastic process within the panc reas as a source for the unexplained pancreatitis in a 62-year-old patient. No obvious neoplasm was seen by CT on original admission or the MRCP.
--- NOTE | 2017-12-08 13:39 | ADD-DIS ---
ADDENDUM Please see my discharge summary dictated on 12/06/2017. After that, I spoke with Dr. Christie and he re commended to do MRCP to rule out any other pathology. MRCP was done which was unremarkable, but it i s still showing edema of the pancreas. There is no complication. The patient has clinically continu ed to improve other than bloating after food, so we provided necessary patient education about diet. This patient is at risk for developing pseudocyst and that is why I advised her to follow up with the GI in 2 weeks. The patient is otherwise stable. GI already signed off on this patient and they preethi ared her for discharge. We prescribed all new medication to her pharmacy. Plan of care discussed with the patient and family member. The patient is seen and examined at bedside today. Please see my progress note from today for furthe r detail.
== END 2017-12-08 15:39 | disposition home or self-care (01) | DRG 439 ==
LOC: ERS 23:14 → T4-A 12-04 00:30
PROVIDERS: ADMIT Hospitalist; ATTEND Hospitalist
DX: K85.00 Idiopathic acute pancreatitis without necrosis or infection (principal); N39.0 Urinary tract infection, site not specified; K81.0 Acute cholecystitis; E83.39 Other disorders of phosphorus metabolism; I10 Essential (primary) hypertension; K21.9 Gastro-esophageal reflux disease without esophagitis; J45.909 Unspecified asthma, uncomplicated; E87.6 Hypokalemia; E16.2 Hypoglycemia, unspecified
CPT/HCPCS: 36415; 36416; 74183; 76705; 78227; 80048; 80053; 80061; 80076; 81001; 83690; 83735; 84100; 85025; 86140; 87086; 96361; 96374; A9537; J0696; J1650; J2270; J2405; J7050; S0028